=== PATIENT | male | born 1995 | race Caucasian/White ===

== ENCOUNTER 2019-12-13 21:41 | Emergency (ER) | payer OTHER, SELFPAY ==
[2019-12-13 21:42] VITALS: BP 152/106; PULSE 93; RESP 16; TEMP 36.9; O2SAT 100; BMI 25.7
--- NOTE | 2019-12-13 22:03 | ED.VIS.GEN ---
History of Present Illness Chief Complaint: Overdose Informant: Patient Onset: Today Context: Sudden Onset Timing: Intermittent Quality: Decreased level of consciousness after injecting 200 mcg of fentanyl Location: Left antecubital fossa Current Severity: Mild Maximum Severity: Severe Worsened by: Fentanyl Relieved by: Did not require Narcan Associated Symptoms: Decreased level of conscious and decreased breathing Narrative: Patient is 24-year-old male who had history of opiate dependency 6 years ago. He at that time took pills. Tonight he injected fentanyl for the first time. He injected 200 mcg of fentanyl. His roommate of many years called squad. He did not require intranasal or intramuscular or intravenous fentanyl. He is presently alert and oriented x3. Blood pressure and heart rate are slightly elevated. Patient has no other complaints. Prior similar symptoms: No Recent Illness/Hospitalization: No - Past Medical History (1) History of opiate use Status: Acute Past Medical History - Allergies and Home Meds Allergies/Adverse Reactions: Allergies Sulfa (Sulfonamide Antibiotics) Allergy (Verified 12/13/19 21:46) Hives Primary Care Physician: Chandan Bean [Primary Care Provider] - Prior records reviewed: No Past Medical History: None Surgical History: no surgical history Lives: Roommate Smoking Status: Never smoker Alcohol: Rare Drugs: - - Fentanyl Review of Systems General: Denies: Chills, Fever, Malaise Eyes: Denies: Visual changes - bilaterally, Blurred Vision - bilaterally ENT: Denies: Rhinorrhea, Sore throat Cardiovascular: Denies: Chest pain, Palpitations Respiratory: Denies: Dyspnea, Dyspnea on exertion Musculoskeletal: Reports: Myalgias, Arthralgias Skin: Reports: Rash, Abscess Hematologic: Reports: Easy bruising, Easy bleeding Physical Exam Vital Signs/Narrative: Vital Signs Temp Pulse Resp BP Pulse Ox 12/13/19 21:42 98.4 F 93 16 152/106 H 100 Inital Vital Signs reviewed: Yes General: Well nourished, Well developed, No Acute Distress Head: Normocephalic, Atraumatic Eyes: Perrl, EOMI. Negative for: Pale conjunctiva, Scleral icterus ENT: No rhinorrhea Neck: Supple, Nontender Cardiovascular: Regular rate, Regular rhythm, No murmurs, Normal S1, Normal S2 Respiratory: No distress, CTA bilaterally Extremities: Nontender, No edema Skin: Normal color, No rash Neurological: Alert, Oriented x3, Cranial nerves II-XII grossly intact, Normal Strength, Normal Sensation Psychological: - - Flat affect Diagnostic/Tx/Re-eval - Medical Decision Making She did not have a decreased level of conscious after an injection of 200 mcg of fentanyl. Half-life of fentanyl is 50 to 20 minutes. Patient has been observed in the emergency department for 24 minutes. Since he is still awake and alert and oriented will discharge to home with appropriate home-going instructions ED Disposition - Plan for ED Patient: Disposition: Home or Assisted Living Diagnosis: Overdose opiate Instructions: ED Overdose Opiate Referrals: Chandan Bean [Primary Care Provider] - 3-5 Days Hyun,One [STAFF PHYSICIAN] - As soon as possible
[2019-12-13 22:28] VITALS: O2SAT 96
== END 2019-12-13 22:31 | disposition home or self-care (01) ==
LOC: ED 22:20
PROVIDERS: Emergency Provider Emergency Medicine; PCP Family Medicine
DX: T40.601A Poisoning by unspecified narcotics, accidental (unintentional), initial encounter (principal); Y92.9 Unspecified place or not applicable
CPT/HCPCS: 99285

== ENCOUNTER 2020-06-10 13:16 | Emergency (ER) | payer OTHER, SELFPAY ==
[2020-06-10] VITALS (9 sets, daily range): BP systolic 108–146; BP diastolic 71–93; PULSE 103–137; RESP 14–26; TEMP 37.1–37.5; O2SAT 79–100; BMI 29.9
--- NOTE | 2020-06-10 13:21 | NURSING ---
NO OLD EKGS
--- NOTE | 2020-06-10 13:22 | EKG12_ITS ---
Test Reason : COVID Blood Pressure : / mmHG Vent. Rate : 150 BPM Atrial Rate : 150 BPM P-R Int : 118 ms QRS Dur : 096 ms QT Int : 272 ms P-R-T Axes : 071 080 072 degrees QTc Int : 429 ms Sinus tachycardia Otherwise normal ECG Confirmed by MEAGAN JIN, MARLA ([id number]), business editor ELIA BABB ([id number]) on 06/12/2020 11:03:49 AM Referred By: GET Confirmed By:MARLA RHODES MD
--- NOTE | 2020-06-10 13:23 | CT_ITS ---
STUDY: CTA CHEST REASON FOR EXAM: Male, 25 years old. SOB and palpitations today, + COVID 1 week ago, history asthma. Prelim already completed. RADIATION DOSAGE (If Supplied By Facility): CTDIvol = ( 7.20 ) mGy, DLP = ( 357.17 ) mGycm TECHNIQUE: The examination was performed with the intravenous administration of IV 100mL Isovue-370. Post-processing of the angiographic images was performed, with multiplanar reformation and 3D reconstruction. Individualized dose optimization techniques were used for this CT. COMPARISON: None. FINDINGS: Motion artifact degrades anatomic detail. The lungs are hyperinflated. Within the right lower lobe there are a few groundglass nodular opacities; there is a single similar-appearing focus within the left lower lobe. No effusions are visualized. There is suboptimal enhancement of the main pulmonary artery and right and left pulmonary arteries. There is suboptimal enhancement of the bilateral peripheral pulmonary arteries. There is no gross demonstrated pulmonary embolism. Normal thoracic aorta and visualized great vessels. There is no demonstrated aortic dissection. Normal heart and pericardium. Normal mediastinum. Normal hilar regions. Normal visualized trachea and bronchi. Normal chest wall structures. Normal osseous structures. Normal visualized upper abdomen. CT/CTA Chest W/WO Contrast IMPRESSION: Limited examination secondary to motion artifact and suboptimal opacification of the pulmonary arteries demonstrating no gross pulmonary embolism or arterial dissection. Few groundglass nodular opacities within the lower lobes, a nonspecific finding which may reflect COVID-19 pneumonia. Electronically Signed: Cinthya Lugo MD at 19:22 EST Tel , Service support ,
--- NOTE | 2020-06-10 13:26 | ED.VIS.GEN ---
History of Present Illness Informant: Patient, [employer] Narrative: 25-year-old male presents the emergency room via EMS with shortness of breath. Patient tested Covid positive about 1 week ago. States that he is not had too many symptoms with it with the occasional shortness of breath with exertion. He does have a history of asthma. Today he was in the shower and got profoundly short of breath. He states his heart rate was around 200. He was sweating. EMS was called they found him to be hypoxic in the 70s. <Warren Juan - Last Filed: 06/10/20 14:49> <Devin Brody - Last Filed: 06/10/20 18:13> Chief Complaint: Palpitations Past Medical History Prior records reviewed: Yes Past Medical History: - - Asthma Surgical History: no surgical history Smoking Status: Never smoker Alcohol: None Drugs: None <Warren Juan - Last Filed: 06/10/20 14:49> <Devin Brody - Last Filed: 06/10/20 18:13> - Allergies and Home Meds Allergies/Adverse Reactions: Allergies Sulfa (Sulfonamide Antibiotics) Allergy (Verified 12/13/19 21:46) Hives Primary Care Physician: Chandan Bean [Primary Care Provider] - Review of Systems General: Reports: Malaise, Sweats. Denies: Chills, Fever Eyes: Denies: Visual changes - bilaterally, Diplopia ENT: Denies: Rhinorrhea, Sore throat Cardiovascular: Reports: Chest pain. Denies: Palpitations Respiratory: Reports: Dyspnea, Cough. Denies: Dyspnea on exertion Gastrointestinal: Denies: Abdominal pain, Nausea, Vomiting, Diarrhea, Melena, Hematochezia Genitourinary: Denies: Dysuria, Hematuria, Frequency Musculoskeletal: Denies: Back pain, Extremity Pain Skin: Denies: Rash, Wounds Neurological: Denies: Headache, Weakness, Numbness <Warren Juan - Last Filed: 06/10/20 14:49> Physical Exam Vital Signs/Narrative: Vital Signs Temp Pulse Resp BP Pulse Ox 06/10/20 13:17 99.5 F H 126 H 19 H 146/93 H 79 Inital Vital Signs reviewed: Yes General: Well nourished, Well developed Head: Normocephalic, Atraumatic Eyes: Perrl, EOMI ENT: Moist mucous membranes, No rhinorrhea Neck: Supple, Nontender Cardiovascular: Regular rate, No murmurs, Tachycardia Respiratory: CTA bilaterally, Chest nontender, - - Patient is tachypneic Abdomen: Soft, Nontender, Nondistended, Normal bowel sounds Back: Nontender, Normal Inspection Extremities: Nontender, No edema Skin: Normal color, No rash, Diaphoresis Neurological: Alert, Oriented x3, Cranial nerves II-XII grossly intact, Normal Strength, Normal Sensation Psychological: Normal affect, Normal Mood <Warren Juan - Last Filed: 06/10/20 14:49> Vital Signs/Narrative: Vital Signs Temp Pulse Resp BP Pulse Ox 06/10/20 17:44 116 H 14 122/77 H 100 06/10/20 17:00 105 H 14 119/83 H 96 06/10/20 16:00 103 H 14 125/81 H 96 06/10/20 15:59 98.8 F 105 H 14 117/78 95 06/10/20 14:54 99.2 F H 126 H 26 H 108/91 H 97 <Devin Brody - Last Filed: 06/10/20 18:13> Diagnostic/Tx/Re-eval Laboratory Last Values WBC 6.5 K/mm3 (4.4-11.0) 06/10/20 13:30 RBC 5.37 M/mm3 (4.6-6.2) 06/10/20 13:30 Hgb 14.8 g/dL (13.0-16.5) 06/10/20 13:30 Hct 43.5 % (40-54) 06/10/20 13:30 MCV 81.0 fL (80-94) 06/10/20 13:30 MCH 27.6 pg (27.0-32.0) 06/10/20 13:30 MCHC 34.0 g/dL (32-36) 06/10/20 13:30 RDW Std Deviation 36.3 fl (35.1-43.9) 06/10/20 13:30 RDW Coeff of Dm 12.6 % (11.6-14.6) 06/10/20 13:30 Plt Count 376 K/mm3 (150-450) 06/10/20 13:30 MPV 9.1 fl (6.2-12.0) 06/10/20 13:30 Immature Gran % (Auto) 0.600 % (0.0-0.9) 06/10/20 13:30 Neut % (Auto) 53.5 % (47-70) 06/10/20 13:30 Lymph % (Auto) 39.8 % (19-41) 06/10/20 13:30 [place] % (Auto) 5.9 % (0-10) 06/10/20 13:30 Eos % (Auto) 0.0 % (0-5) 06/10/20 13:30 Baso % (Auto) 0.2 % (0-1) 06/10/20 13:30 Absolute Neuts (auto) 3.5 X10^3/uL (2.0-7.7) 06/10/20 13:30 Absolute Lymphs (auto) 2.58 X10^3/uL (0.83-4.51) 06/10/20 13:30 Nucleated RBC % 0 % (0-5) 06/10/20 13:30 D-Dimer Quant (PE/DVT) <= 0.27 FEU/ug/m (0.27-0.49) 06/10/20 13:30 Sodium 141 mmol/L (136-145) 06/10/20 13:30 Potassium 3.8 mmol/L (3.5-5.1) 06/10/20 13:30 Chloride 110 mmol/L (98-107) H 06/10/20 13:30 Carbon Dioxide 23.0 mmol/L (21.0-32.0) 06/10/20 13:30 Anion Gap 8 (5-15) 06/10/20 13:30 BUN 16 mg/dL (7-18) 06/10/20 13:30 Creatinine 1.09 mg/dL (0.70-1.30) 06/10/20 13:30 Estim Creat Clear Calc 96.02 ml/min 06/10/20 13:30 Est GFR (MDRD) Af Amer 105 mL/min (>60) 06/10/20 13:30 Est GFR (MDRD) Non-Af 87 mL/min (>60) 06/10/20 13:30 BUN/Creatinine Ratio 14.7 RATIO (10-20) 06/10/20 13:30 Glucose 100 mg/dL (74-106) 06/10/20 13:30 Lactic Acid 3.0 mmol/L (0.4-1.9) H* 06/10/20 13:30 Calcium 10.2 mg/dL (8.5-10.1) H 06/10/20 13:30 Total Bilirubin 0.30 mg/dL (0.20-1.00) 06/10/20 13:30 AST 20 U/L (15-37) 06/10/20 13:30 ALT 60 U/L (16-61) 06/10/20 13:30 Alkaline Phosphatase 69 U/L (45-117) 06/10/20 13:30 Lactate Dehydrogenase 159 U/L (87-241) 06/10/20 13:30 Total Creatine Kinase 71 U/L (39-308) 06/10/20 13:30 Troponin I < 0.015 ng/mL (<0.045) 06/10/20 13:30 C-React Prot Ext Range < 2.90 mg/L (0.0-3.0) 06/10/20 13:30 Total Protein 8.5 g/dL (6.4-8.2) H 06/10/20 13:30 Albumin 4.5 g/dL (3.2-5.0) 06/10/20 13:30 Globulin 4.0 g/dL (2.2-4.2) 06/10/20 13:30 Albumin/Globulin Ratio 1.1 RATIO (0.9-2.4) 06/10/20 13:30 - EKG Initial EKG Interpretation: Sinus Tachycardia - KG demonstrates a sinus tachycardia without ectopy or concerning features of ACS. - Medical Decision Making CTA of the chest was negative for infiltrates or pulmonary embolism. No clear etiology for his hypoxia noted on the scan. Basic labs were negative except for lactic acid of 3. I do not suspect a shock state. This could be due to his work of breathing. His heart rate is come down to 118. He is feeling nauseated so we are going to give him Zofran. We will check a room air saturation at this time. Also given 1 mg of Ativan. We will reassess. <Warren Juan - Last Filed: 06/10/20 14:49> - Medical Decision Making This patient was signed out to me for reevaluation. The patient has remained normal pulse oximetry off of oxygen. With treatment of Ativan his heart rate significantly improved and it has been about 105. He does admit to feeling anxious when he got here. Given lack of hypoxia and unremarkable CT of the chest I do not see an indication for hospitalization at this time. He was treated with IV fluids and repeat lactic acid normalized. We will treat with steroid. Patient does understand return for new or worsening symptoms and was advised on specific signs and symptoms to monitor for. Patient discharged. <Devin Brody - Last Filed: 06/10/20 18:13> ED Disposition <Warren Juan - Last Filed: 06/10/20 14:49> <Devin Brody - Last Filed: 06/10/20 18:13> - Plan for ED Patient: Disposition: Home or Assisted Living Diagnosis: COVID-19, Dyspnea Instructions: Coronavirus Disease 2019 (COVID-19) Prescriptions: Prednisone [Deltasone] 40 mg PO DAILY #10 tab Prescription Printed Referrals: Chandan Bean [Primary Care Provider] -
[2020-06-10] MEDS: dexAMETHasone 10 MG/ML Vial 6 MG IV (13:36)
[2020-06-10] MEDS: 0.9% Normal Saline 1,000 ML 125 ML IV (13:36)
[2020-06-10 13:57] LABS: Absolute Lymphocyte Count 2.58 X10^3/uL (0.83-4.51); Absolute Neutrophil Count 3.5 X10^3/uL (2.0-7.7); Basophil# 0.01 X10^3/uL; Basophil% 0.2 % (0-1); Hematocrit 43.5 % (40-54); Hemoglobin 14.8 g/dL (13.0-16.5); Lymphocyte # 2.58 X10^3/ul (4.0); Lymphocyte % 39.8 % (19-41); Mean Corpuscular Hgb 27.6 pg (27.0-32.0); Mean Platelet Vol. 9.1 fl (6.2-12.0); Monocyte# 0.38 X10^3/uL; Monocyte% 5.9 % (0-10); NRBC Flagged by Analyzer 0 % (0-5); Neutrophil # 3.48 X10^3/uL (2.7-7.7); Neutrophil % 53.5 % (47-70); Platelet Count 376 K/mm3 (150-450); RBC Distribution Width CV 12.6 % (11.6-14.6); RBC Distribution Width SD 36.3 fl (35.1-43.9); Red Blood Count 5.37 M/mm3 (4.6-6.2); White Blood Count 6.5 K/mm3 (4.4-11.0)
[2020-06-10 14:15] LABS: ALB/GLOB Ratio 1.1 RATIO (0.9-2.4); AST(SGOT) 20 U/L (15-37); Alanine Aminotransfer ALT/SGPT 60 U/L (16-61); Albumin, Serum 4.5 g/dL (3.2-5.0); Alkaline Phosphatase 69 U/L (45-117); Anion Gap 8 (5-15); BUN 16 mg/dL (7-18); BUN/Creat Ratio 14.7 RATIO (10-20); CPK Total, Creatine Kinase 71 U/L (39-308); CRP < 2.90 mg/L (0.0-3.0); Calcium,Total 10.2 mg/dL (8.5-10.1); Chloride 110 mmol/L (98-107); Creatinine, Serum 1.09 mg/dL (0.70-1.30); EST Glomerular Filtration Rate 87 mL/min (>60); Est Glom Filt Rate - Afr Amer 105 mL/min (>60); Estimated Creatinine Clearance 96.02 ml/min; Glucose 100 mg/dL (74-106); LDH 159 U/L (87-241); Potassium 3.8 mmol/L (3.5-5.1); Protein, Total 8.5 g/dL (6.4-8.2); Sodium Level 141 mmol/L (136-145)
[2020-06-10 14:49] LABS: D-Dimer Quantitative (DVT/PE) <= 0.27 FEU/ug/m (0.27-0.49)
[2020-06-10] MEDS: Ondansetron 4 MG/2 ML Vial IV (15:06)
[2020-06-10] MEDS: LORazepam 2 MG/ML Syringe 1 MG IV (15:06)
[2020-06-10 15:41] LABS: Fibrinogen 330 mg/dl (203-444)
[2020-06-10] MEDS: 0.9% Normal Saline 1,000 ML 999 ML IV (16:03)
[2020-06-10 17:46] LABS: Lactic Acid 1.3 mmol/L (0.4-1.9)
[2020-06-10 17:49] LABS: Reflex Lactate? Y
[2020-06-12 13:00] LABS: Procalcitonin < 0.04 ng/mL (0.00-0.09)
== END 2020-06-10 18:23 | disposition home or self-care (01) ==
PROVIDERS: Emergency Medicine; Emergency Provider Emergency Medicine; PCP Family Medicine
DX: U07.1 COVID-19 (principal); R06.00 Dyspnea, unspecified; J45.909 Unspecified asthma, uncomplicated
CPT/HCPCS: 36415; 71275; 80053; 82550; 83605; 83615; 84145; 84484; 85025; 85379; 85384; 86140; 87040; 93005; 96361; 96365; 96375; 99285; J7030; Q9967; A4216; J2405

== ENCOUNTER 2021-01-29 16:36 | Emergency (ER) | payer OTHER, SELFPAY ==
[2020-06-10 13:17] VITALS: BMI 29.9
[2021-01-29 16:37] VITALS: BP 179/111; PULSE 119; RESP 16; TEMP 37; O2SAT 99
[2021-01-29 16:38] VITALS: BP 179/111; PULSE 124; RESP 21; TEMP 37; O2SAT 100; BMI 28.8
[2021-01-29 16:41] VITALS: TEMP 37; O2SAT 97
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
[2021-01-29] MEDS: Ketorolac 60 MG/2 ML Vial IM (18:08)
[2021-01-29] MEDS: Ondansetron ODT 4 MG Tablet PO (18:18)
[2021-01-29 18:36] VITALS: BP 159/109; PULSE 100; RESP 16; O2SAT 96
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
== END 2021-01-29 18:38 | disposition home or self-care (01) ==
PROVIDERS: Emergency Provider Emergency Medicine; PCP Family Medicine
DX: S06.0X0A Concussion without loss of consciousness, initial encounter (principal); T23.072A Burn of unspecified degree of left wrist, initial encounter; W22.11XA Striking against or struck by driver side automobile airbag, initial encounter; V69.9XXA Occupant (driver) (passenger) of heavy transport vehicle injured in unspecified traffic accident, initial encounter; Y93.9 Activity, unspecified; Y92.9 Unspecified place or not applicable; F32.9 Major depressive disorder, single episode, unspecified; Z79.899 Other long term (current) drug therapy
CPT/HCPCS: 70450; 73110; 96372; 99284

== ENCOUNTER 2021-04-18 14:15 | Emergency (ER) | payer OTHER, SELFPAY ==
[2021-04-18 14:16] VITALS: BP 137/80; PULSE 140; RESP 24; TEMP 37.9; O2SAT 99; BMI 27.1
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
[2021-04-18 15:18] LABS: Absolute Lymphocyte Count 2.65 X10^3/uL (0.83-4.51); Absolute Neutrophil Count 5.5 X10^3/uL (2.0-7.7); Basophil# 0.03 X10^3/uL; Basophil% 0.3 % (0-1); Eosinophil# 0.06 X10^3/uL; Eosinophils% 0.7 % (0-5); Hematocrit 41.8 % (40-54); Lymphocyte # 2.65 X10^3/ul (0.83-4.51); Lymphocyte % 29.5 % (19-41); Mean Corp Hgb Conc 33.5 g/dL (32-36); Mean Corpuscular Volume 80.7 fL (80-94); Mean Platelet Vol. 8.8 fl (6.2-12.0); Monocyte# 0.57 X10^3/uL; Monocyte% 6.3 % (0-10); NRBC Flagged by Analyzer 0 % (0-5); Neutrophil # 5.54 X10^3/uL (2.7-7.7); Neutrophil % 61.8 % (47-70); Platelet Count 355 K/mm3 (150-450); RBC Distribution Width CV 12.4 % (11.6-14.6); RBC Distribution Width SD 36.3 fl (35.1-43.9); Red Blood Count 5.18 M/mm3 (4.6-6.2)
[2021-04-18] MEDS: Morphine 4 MG/ML Syringe IV ×3 (15:19→17:53)
[2021-04-18] MEDS: Ondansetron 4 MG/2 ML Vial IV (15:19)
[2021-04-18] MEDS: 0.9% Normal Saline 1,000 ML 150 ML IV (15:19)
[2021-04-18 15:20] VITALS: BP 111/82; PULSE 128; RESP 19; O2SAT 100
[2021-04-18 15:33] LABS: ALB/GLOB Ratio 0.9 RATIO (0.9-2.4); AST(SGOT) 34 U/L (15-37); Alanine Aminotransfer ALT/SGPT 47 U/L (16-61); Albumin, Serum 3.8 g/dL (3.2-5.0); Alkaline Phosphatase 88 U/L (45-117); Anion Gap 11 (5-15); BUN 13 mg/dL (7-18); BUN/Creat Ratio 10.6 RATIO (10-20); Calcium,Total 9.1 mg/dL (8.5-10.1); Chloride 103 mmol/L (98-107); Creatinine, Serum 1.23 mg/dL (0.70-1.30); EST Glomerular Filtration Rate 75 mL/min (>60); Est Glom Filt Rate - Afr Amer 91 mL/min (>60); Estimated Creatinine Clearance 99.02 ml/min; Globulin 4.3 g/dL (2.2-4.2); Glucose 104 mg/dL (74-106); Potassium 4.3 mmol/L (3.5-5.1); Protein, Total 8.1 g/dL (6.4-8.2); Sodium Level 139 mmol/L (136-145); Troponin-I HS 4 pg/mL (3.0-78.0)
[2021-04-18 15:39] LABS: Alcohol, Blood (Medical)-Serum < 3.0 mg/dL
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
[2021-04-18 17:07] VITALS: BP 127/85; PULSE 112; RESP 16; O2SAT 100
[2021-04-18] MEDS: Diphth,Pertuss(Acell),Tet Vac 0.5 ML Vial IM (17:16)
[2021-04-18] MEDS: Orphenadrine 60 MG/2 ML Ampul IM (17:20)
[2021-04-18 18:12] VITALS: BP 150/94; PULSE 120; RESP 16; O2SAT 97
== END 2021-04-18 18:14 | disposition other institution (70) ==
PROVIDERS: Emergency Provider Emergency Medicine; PCP Family Medicine
DX: S32.591A Other specified fracture of right pubis, initial encounter for closed fracture (principal); S00.81XA Abrasion of other part of head, initial encounter; S06.0X9A Concussion with loss of consciousness of unspecified duration, initial encounter; V29.9XXA Motorcycle rider (driver) (passenger) injured in unspecified traffic accident, initial encounter; Y93.55 Activity, bike riding; Y92.9 Unspecified place or not applicable; F32.9 Major depressive disorder, single episode, unspecified; Z79.899 Other long term (current) drug therapy; Z87.891 Personal history of nicotine dependence
CPT/HCPCS: 70450; 71260; 72125; 73552; 74177; 80053; 82077; 84484; 85025; 87426; 90715; 96361; 96372; 96374; 96375; 96376; 99285; J7030; Q9967; A4216; J2405